=== PATIENT | male | born 2000 | race Caucasian/White ===

== ENCOUNTER 2018-11-06 19:49 | Emergency (ER) | payer MEDICAID, SELFPAY ==
[2018-11-06 20:04] VITALS: BP 122/68; PULSE 92; RESP 20; TEMP 36.8; O2SAT 99
--- NOTE | 2018-11-06 20:40 | DI.RAD_ITS ---
SYMPTOMS/DIAGNOSIS: COUGH PA AND LATERAL CHEST: Comparison 08/30/15. The heart is normal in size. The lungs are clear. The mediastinal structures and pleura appear intact. CONCLUSION: Normal chest.
--- NOTE | 2018-11-06 21:09 | DI.VRAD_ITS ---
EXAM: XR Chest, 2 Views EXAM DATE/TIME: 11/06/2018 8:43 PM CLINICAL HISTORY: 18 years old, male; Signs and symptoms; Cough TECHNIQUE: XR of the chest, 2 views. COMPARISON: CR CHEST 2 VIEWS PA,LAT 08/30/2015 12:59 PM FINDINGS: Lungs: Unremarkable. No consolidation. Pleural space: Unremarkable. No pleural effusion. No pneumothorax. Heart/Mediastinum: Unremarkable. No cardiomegaly. Bones/joints: Unremarkable. IMPRESSION: Negative chest. Dictated and Authenticated by: Car Paulson MD. Ordering:DONI Edwards MD
[2018-11-06 21:21] LABS: Abs Immature Grans 0.02 k/cumm (0.0-0.09); Absolute Basophil Count 0.03 k/cumm (0.0-0.2); Absolute Eosinophil Count 0.12 k/cumm (0.0-0.7); Absolute Lymphocyte Count 3.13 k/cumm (1.2-3.4); Absolute Monocyte Count 0.65 k/cumm (0.11-0.7); Basophils % 0.3; Eosinophils % 1.3; HCT 47.9 % (40.0-50.0); HGB 16.4 g/dL (13.5-17.5); Immature Grans % 0.2; Lymphocytes % 33.5; Mean Corp. HGB Concentration 34.2 g/dL (32.0-36.0); Mean Corpuscular Hemoglobin 31.7 pg (27.0-33.0); Mean Corpuscular Volume 92.5 fL (80-95); Mean Platelet Volume 8.8 fL (8.0-11.0); Neutrophils % 57.7; Platelet Count 236 x1000/uL (130-400); RBC 5.18 m/cumm (4.50-6.00); RBC Distribution Width 12.8 % (11.8-14.1); White Blood Cell Count 9.35 k/cumm (4.4-10.8)
[2018-11-06 21:45] LABS: ALT 15 U/L (12-78); AST 10 U/L (15-37); Albumin 4.5 g/dL (3.4-5.0); Alkaline Phosphatase 75 U/L (46-116); Anion Gap 10.8 mmol/L (3-11); BUN 10 mg/dL (7-18); Bilirubin, Total 0.2 mg/dL (0.2-1.0); CO2 28.2 mmol/L (21.0-32.0); CREATININE 0.88 mg/dL (0.70-1.30); Calcium 8.8 mg/dL (8.5-10.1); Chloride 105 mmol/L (98-107); Glucose 107 mg/dL (70-100); Sodium 144 mmol/L (136-145); TSH (W/Ref FT4) 3.76 uIU/mL (0.358-3.74); Total Protein 8.5 g/dL (6.4-8.2)
[2018-11-06 22:20] LABS: FREE T4 1.02 ng/dL (0.76-1.46)
--- NOTE | 2018-11-06 22:50 | W.ED.GENAD ---
Discharge Plan Disposition Patient Disposition: HOME Condition: Stable Discharge Details Chief Complaint: Nk/Back Pain Clinical Impression: Lymphadenopathy, anterior cervical Primary Care Provider: None,None ED Provider: Jerry Klein Home Meds and New Rx's Prescriptions: No Action No Known Home Meds RF: 0 Discharge Instructions Instructions: Lymphadenopathy (ED) Additional Instructions: Please follow-up with [facility] to establish Primary care provider, reassessment of your swollen lymph nodes, and recheck of your thyroid as needed. Feel free to contact care management as needed for assistance in obtaining appointment if you have any further issues. Referrals: [facility] [Provider Group] - 2 weeks Discharge Data Discharge Date/Time-TO BE ENTERED AT DEPARTURE: 11/06/18 23:20 Medical Decision Making Patient presenting to the emergency department for chief complaint of neck pain. Patient states that he has noticed a lump on the right side of his neck for over a year and recently he noticed more lumps appearing. He does state that he has been noticing some significant hair loss. He also does state that he had cold-like symptoms about a month ago that is resolved and occasionally has mild cough. Patient denies any fever chills, nausea vomiting diarrhea, abnormal bruising or bleeding. Patient has very mild palpable lymph nodes that are movable to the anterior cervical chain of the neck. Physical exam is otherwise unremarkable with clear lung sounds, normal cardiac exam, no supraclavicular lymphadenopathy, no other lymph nodes or symptoms noted. Plan to check labs, thyroid, and chest x-ray but more suspect reactive lymphadenopathy. Review of labs shows non-worrisome CBC, nondiagnostic CMP, normal chest x-ray, TSH elevated with normal Free-t 4. Given that this is been going on for 1 year and labs are reassuring I do not feel that any emergent interventions are required at this time but I do feel that patient should follow-up and establish primary care provider as soon as possible. Patient does state that he has the paperwork for [facility] but has not been able to obtain an appointment yet. Patient was instructed to continue to fill out paperwork for establishment of primary care provider and patient placed upon care management list for assistance as needed. Did recommend that patient be seen in the next 2 weeks for reassessment. HPI General Mode of arrival: ambulatory. Date/Time Provider Initiated Documentation: 11/06/18 20:34. Limitations to Documentation: no limitations. Information obtained by: patient and RN notes reviewed. History of Present Illness 18 year old M presents to the emergency department with the chief complaint of lump in neck , Quality is described as other (denies pain), and is localized to the neck. Patient started experiencing this year(s) (1) and it has been constant. No relieving factors improve symptom(s), Patient notes no other symptoms.. Patient did receive the following treatments prior to arrival, none Related Data Home Medications Medication Instructions Recorded Confirmed Unknown [No Known Home Meds] 11/06/18 11/06/18 Allergies Allergy/AdvReac Type Severity Reaction Status Date / Time No Known Allergies Allergy Unverified 11/06/18 20:08 General Stated Complaint: Nk/Back Pain REMA: 3 Review of Systems Constitutional Denies chills, Denies fever(s), Denies poor appetite and Denies weakness Eyes Denies blurry vision and Denies change in vision ENT Reports as per HPI, Reports neck mass and Denies neck pain Cardiovascular Denies palpitations Respiratory Reports cough (Occasional) Musculoskeletal Denies neck pain Integumentary/Breasts Reports change in hair (hair loss) Neurologic Denies weakness Endocrine Denies palpitations PFSH Surgical History Tooth extraction Family History Mother Essential hypertension Depression Father Healthy adult Other Diabetes Essential hypertension Other Personal history of malignant neoplasm Social History Smoking and Tabacco status: Current every day Exam Const General: cooperative, healthy appearing, comfortable, no acute distress and anxious Nutritional Appearance: average body habitus Orientation: alert, awake and oriented x3 HENMT Head: normal to inspection, normocephalic and atraumatic Ears: hearing grossly normal bilaterally, external ears normal and TM's normal bilaterally General nose exam: external nose normal Face and sinus: normal facial exam and face symmetric Mouth: oral mucosae normal, lip normal and tongue normal Throat: posterior oropharynx normal, tonsils normal and uvula midline Eyes General: appearance normal, both eyes and all related structures Visual Hendrickson: normal visual hendrickson by confrontation Alignment and Position: alignment normal Periorbital: periorbital findings normal Eyelids: eyelids normal Conjunctivae: conjunctivae normal Sclera: sclerae normal Cornea: corneas normal Pupils: PERRL EOM: EOM intact bilaterally Neck Neck: normal visual inspection, full ROM, no meningeal signs and lymphadenopathy (Mild cervical lymph nodes that are non-fixed, not tender) Thyroid: thyroid normal, not diffusely enlarged, not firm and no masses Resp Effort & Inspection: normal respiratory effort and able to speak in complete sentences Auscultation: clear to auscultation bilaterally Cardio Rate: regular rate Rhythm: regular rhythm Heart Sounds: S1 normal and S2 normal Skin Lesions: no lesions Rashes: no rashes Hair: male pattern alopecia Course Vital Signs Temperature 36.8 C 11/06/18 20:04 Pulse 92 H 11/06/18 20:04 Respiratory Rate 20 11/06/18 20:04 Blood Pressure 122/68 11/06/18 20:04 Pulse Oximetry 99 11/06/18 20:04 Temperature 36.8 C 11/06/18 20:04 Temperature Source Temporal Artery Scan 11/06/18 20:04 Pulse 92 H 11/06/18 20:04 Respiratory Rate 20 11/06/18 20:04 Respiratory Effort Non-Labored 11/06/18 20:04 Blood Pressure 122/68 11/06/18 20:04 Blood Pressure Position Sitting 11/06/18 20:04 Pulse Oximetry 99 11/06/18 20:04 Oxygen Delivery Method Room Air 11/06/18 20:04 Oxygen Flow Rate 0 11/06/18 20:04 Pain Level 0 11/06/18 20:04 Lab/Test Results Lab/Test Results: Laboratory Tests Range/Units 11/06/18 11/06/18 21:10 21:10 WBC (4.4-10.8) k/cumm 9.35 RBC (4.50-6.00) m/cumm 5.18 Hgb (13.5-17.5) g/dL 16.4 Hct (40.0-50.0) % 47.9 MCV (80-95) fL 92.5 MCH (27.0-33.0) pg 31.7 MCHC (32.0-36.0) g/dL 34.2 RDW (11.8-14.1) % 12.8 Plt Count (130-400) x1000/uL 236 MPV (8.0-11.0) fL 8.8 Immature Gran % 0.2 Neutrophils % 57.7 Lymphocytes % 33.5 Monocytes % 7.0 Eosinophils % 1.3 Basophils % 0.3 Absolute Neutrophils (1.2-6.7) k/cumm 5.40 Absolute Lymphocytes (1.2-3.4) k/cumm 3.13 Absolute Monocytes (0.11-0.7) k/cumm 0.65 Absolute Eosinophils (0.0-0.7) k/cumm 0.12 Absolute Basophils (0.0-0.2) k/cumm 0.03 Sodium (136-145) mmol/L 144 Potassium (3.5-5.1) mmol/L 4.0 Chloride (98-107) mmol/L 105 Carbon Dioxide (21.0-32.0) mmol/L 28.2 Anion Gap (3-11) mmol/L 10.8 BUN (7-18) mg/dL 10 Creatinine (0.70-1.30) mg/dL 0.88 Estimated GFR/1.73 m2 (mL/min/1.73m2) >= 60.00 Glucose (70-100) mg/dL 107 H Calcium (8.5-10.1) mg/dL 8.8 Total Bilirubin (0.2-1.0) mg/dL 0.2 AST (15-37) U/L 10 L ALT (12-78) U/L 15 Alkaline Phosphatase (46-116) U/L 75 Total Protein (6.4-8.2) g/dL 8.5 H Albumin (3.4-5.0) g/dL 4.5 TSH (0.358-3.74) uIU/mL 3.76 H Free T4 (0.76-1.46) ng/dL 1.02
--- NOTE | 2018-11-06 22:57 | ED.GENADUL_ITS ---
Discharge Plan Disposition Patient Disposition: HOME Condition: Stable Discharge Details Chief Complaint: Nk/Back Pain Clinical Impression: Lymphadenopathy, anterior cervical Primary Care Provider: None,None ED Provider: Jerry Klein Home Meds and New Rx's Prescriptions: No Action No Known Home Meds RF: 0 Discharge Instructions Instructions: Lymphadenopathy (ED) Additional Instructions: Please follow-up with [facility] to establish Primary care provider, reassessment of your swollen lymph nodes, and recheck of your thyroid as needed. Feel free to contact care management as needed for assistance in obtaining appointment if you have any further issues. Referrals: [facility] [Provider Group] - 2 weeks Discharge Data Discharge Date/Time-TO BE ENTERED AT DEPARTURE: 11/06/18 23:20 Medical Decision Making Patient presenting to the emergency department for chief complaint of neck pain. Patient states that he has noticed a lump on the right side of his neck for over a year and recently he noticed more lumps appearing. He does state that he has been noticing some significant hair loss. He also does state that he had cold-like symptoms about a month ago that is resolved and occasionally has mild cough. Patient denies any fever chills, nausea vomiting diarrhea, abnormal bruising or bleeding. Patient has very mild palpable lymph nodes that are movable to the anterior cervical chain of the neck. Physical exam is otherwise unremarkable with clear lung sounds, normal cardiac exam, no supraclavicular lymphadenopathy, no other lymph nodes or symptoms noted. Plan to check labs, thyroid, and chest x-ray but more suspect reactive lymphadenopathy. Review of labs shows non-worrisome CBC, nondiagnostic CMP, normal chest x-ray, TSH elevated with normal Free-t 4. Given that this is been going on for 1 year and labs are reassuring I do not feel that any emergent interventions are required at this time but I do feel that patient should follow-up and establish primary care provider as soon as possible. Patient does state that he has the paperwork for [facility] medicine but has not been able to obtain an appointment yet. Patient was instructed to continue to fill out paperwork for establishment of primary care provider and patient placed upon care management list for assistance as needed. Did recommend that patient be seen in the next 2 weeks for reassessment. HPI General Mode of arrival: ambulatory . Date/Time Provider Initiated Documentation: 11/06/18 20:34 . Limitations to Documentation: no limitations . Information obtained by: patient and RN notes reviewed . History of Present Illness 18 year old M presents to the emergency department with the chief complaint of lump in neck , Quality is described as other (denies pain), and is localized to the neck. Patient started experiencing this year(s) (1) and it has been constant. No relieving factors improve symptom(s), Patient notes no other symptoms.. Patient did receive the following treatments prior to arrival, none Related Data Home Medications Medication Instructions Recorded Confirmed Unknown [No Known Home Meds] 11/06/18 11/06/18 Allergies Allergy/AdvReac Type Severity Reaction Status Date / Time No Known Allergies Allergy Unverified 11/06/18 20:08 General Stated Complaint: Nk/Back Pain REMA: 3 Review of Systems Constitutional Denies chills, Denies fever(s), Denies poor appetite and Denies weakness Eyes Denies blurry vision and Denies change in vision ENT Reports as per HPI, Reports neck mass and Denies neck pain Cardiovascular Denies palpitations Respiratory Reports cough (Occasional) Musculoskeletal Denies neck pain Integumentary/Breasts Reports change in hair (hair loss) Neurologic Denies weakness Endocrine Denies palpitations PFSH Surgical History Tooth extraction Family History Mother Essential hypertension Depression Father Healthy adult Other Diabetes Essential hypertension Other Personal history of malignant neoplasm Social History Smoking and Tabacco status: Current every day Exam Const General: cooperative, healthy appearing, comfortable, no acute distress and anxious Nutritional Appearance: average body habitus Orientation: alert, awake and oriented x3 HENMT Head: normal to inspection, normocephalic and atraumatic Ears: hearing grossly normal bilaterally, external ears normal and TM's normal bilaterally General nose exam: external nose normal Face and sinus: normal facial exam and face symmetric Mouth: oral mucosae normal, lip normal and tongue normal Throat: posterior oropharynx normal, tonsils normal and uvula midline Eyes General: appearance normal, both eyes and all related structures Visual Hendrickson: normal visual hendrickson by confrontation Alignment and Position: alignment normal Periorbital: periorbital findings normal Eyelids: eyelids normal Conjunctivae: conjunctivae normal Sclera: sclerae normal Cornea: corneas normal Pupils: PERRL EOM: EOM intact bilaterally Neck Neck: normal visual inspection, full ROM, no meningeal signs and lymphadenopathy (Mild cervical lymph nodes that are non-fixed, not tender) Thyroid: thyroid normal, not diffusely enlarged, not firm and no masses Resp Effort & Inspection: normal respiratory effort and able to speak in complete sentences Auscultation: clear to auscultation bilaterally Cardio Rate: regular rate Rhythm: regular rhythm Heart Sounds: S1 normal and S2 normal Skin Lesions: no lesions Rashes: no rashes Hair: male pattern alopecia Course Vital Signs Temperature 36.8 C 11/06/18 20:04 Pulse 92 H 11/06/18 20:04 Respiratory Rate 20 11/06/18 20:04 Blood Pressure 122/68 11/06/18 20:04 Pulse Oximetry 99 11/06/18 20:04 Temperature 36.8 C 11/06/18 20:04 Temperature Source Temporal Artery Scan 11/06/18 20:04 Pulse 92 H 11/06/18 20:04 Respiratory Rate 20 11/06/18 20:04 Respiratory Effort Non-Labored 11/06/18 20:04 Blood Pressure 122/68 11/06/18 20:04 Blood Pressure Position Sitting 11/06/18 20:04 Pulse Oximetry 99 11/06/18 20:04 Oxygen Delivery Method Room Air 11/06/18 20:04 Oxygen Flow Rate 0 11/06/18 20:04 Pain Level 0 11/06/18 20:04 Lab/Test Results Lab/Test Results: Laboratory Tests Range/Units 11/06/18 11/06/18 21:10 21:10 WBC (4.4-10.8) k/cumm 9.35 RBC (4.50-6.00) m/cumm 5.18 Hgb (13.5-17.5) g/dL 16.4 Hct (40.0-50.0) % 47.9 MCV (80-95) fL 92.5 MCH (27.0-33.0) pg 31.7 MCHC (32.0-36.0) g/dL 34.2 RDW (11.8-14.1) % 12.8 Plt Count (130-400) x1000/uL 236 MPV (8.0-11.0) fL 8.8 Immature Gran % 0.2 Neutrophils % 57.7 Lymphocytes % 33.5 Monocytes % 7.0 Eosinophils % 1.3 Basophils % 0.3 Absolute Neutrophils (1.2-6.7) k/cumm 5.40 Absolute Lymphocytes (1.2-3.4) k/cumm 3.13 Absolute Monocytes (0.11-0.7) k/cumm 0.65 Absolute Eosinophils (0.0-0.7) k/cumm 0.12 Absolute Basophils (0.0-0.2) k/cumm 0.03 Sodium (136-145) mmol/L 144 Potassium (3.5-5.1) mmol/L 4.0 Chloride (98-107) mmol/L 105 Carbon Dioxide (21.0-32.0) mmol/L 28.2 Anion Gap (3-11) mmol/L 10.8 BUN (7-18) mg/dL 10 Creatinine (0.70-1.30) mg/dL 0.88 Estimated GFR/1.73 m2 (mL/min/1.73m2) >= 60.00 Glucose (70-100) mg/dL 107 H Calcium (8.5-10.1) mg/dL 8.8 Total Bilirubin (0.2-1.0) mg/dL 0.2 AST (15-37) U/L 10 L ALT (12-78) U/L 15 Alkaline Phosphatase (46-116) U/L 75 Total Protein (6.4-8.2) g/dL 8.5 H Albumin (3.4-5.0) g/dL 4.5 TSH (0.358-3.74) uIU/mL 3.76 H Free T4 (0.76-1.46) ng/dL 1.02
--- NOTE | 2018-11-07 08:46 | CMPROGNOTE_ITS ---
Care Management Progress Note 11/07-John DAUGHERTY requested assistance with a PCP f/u within two weeks for lymphadenopathy and to establish. Patient states that he has already started the process at [facility]. Referral faxed to [facility] this am.
== END 2018-11-06 23:20 | disposition home or self-care (01) ==
PROVIDERS: Emergency Provider Nurse Practitioner Family
DX: R59.0 Localized enlarged lymph nodes (principal); R94.6 Abnormal results of thyroid function studies
CPT/HCPCS: 36415; 80053; 99284; 71046; 84439; 84443; 85025

== ENCOUNTER 2018-11-22 09:57 | Outpatient (CLI) | payer MEDICAID, SELFPAY ==
[2018-11-22 11:38] LABS: C-Reactive Protein 0.11 mg/dL (0.0-0.3); TSH (W/Ref FT4) 1.56 uIU/mL (0.358-3.74)
[2018-11-24 08:53] LABS: HIV-1/2 Ag & Ab Screen Negative (NEGAT)
[2018-11-26 15:20] LABS: Testosterone, Free 16.9 ng/dL (5.25-20.7); Testosterone, Total 512 ng/dL (240-950)
[2018-11-26 16:47] LABS: Thyroid Stimulating Immunoglob <1.0 TSI index (<=1.3)
== END 2018-11-22 10:17 ==
PROVIDERS: PCP Family Medicine; Visit Provider Family Medicine
DX: R59.1 Generalized enlarged lymph nodes (principal); L65.9 Nonscarring hair loss, unspecified
CPT/HCPCS: 84402; 84403; 87389; 84443; 84445; 86140

== ENCOUNTER 2018-12-12 16:42 | Outpatient (CLI) | payer MEDICAID, SELFPAY ==
--- NOTE | 2018-12-12 14:22 | DI.RAD_ITS ---
SYMPTOMS/DIAGNOSIS: CHRONIC BACK STIFFNESS, SUSPECT ANKYLOSING SPONDYLITIS, M25.60 LUMBOSACRAL SPINE: The vertebral bodies and disc spaces are intact. The posterior elements are intact, the facet joints well maintained. There is no evidence of spondylolysis or spondylolisthesis. There is some faint sclerosis about the SI joints bilaterally. The sacrum is normal. SUMMARY: No specific findings to suggest ankylosing spondylitis. If there is further clinical question, then a CT could be obtained to further evaluate the status of the SI joints.
== END 2018-12-12 17:02 ==
PROVIDERS: PCP Family Medicine; Visit Provider Family Medicine
DX: M54.5 Low back pain (principal); M25.60 Stiffness of unspecified joint, not elsewhere classified
CPT/HCPCS: 72110